=== PATIENT | female | born 1995 | race Caucasian/White ===

== ENCOUNTER 2019-05-05 21:25 | Emergency (ER) | payer SELFPAY, OTHER | END 2019-05-05 22:35 | disposition home or self-care (01) | LOC: FTE 21:25 | DX: T22.112A Burn of first degree of left forearm, initial encounter (principal); T22.111A Burn of first degree of right forearm, initial encounter; V49.40XA Driver injured in collision with unspecified motor vehicles in traffic accident, initial encounter; X19.XXXA Contact with other heat and hot substances, initial encounter | CPT/HCPCS: 99283 ==